=== PATIENT | male | born 1990 ===

== ENCOUNTER 2023-09-22 18:38 | Emergency (ER) | payer OTHER ==
[~2023-09-22] VITALS: Ht 180.3 cm; Wt 127.3 kg
[2023-09-22] MEDS ORDERED: NS 1,000 ML IV ONE (18:45)
[2023-09-22] MEDS ORDERED: Ketorolac 30 MG/ML VIAL IV ONE (19:00)
[2023-09-22 19:02] LABS: BASO # 0.02 K/mm3 (0.02-0.10); EOS # 0.19 K/mm3 (0.04-0.40); EOS % 2.7 % (0.0-4.0); HEMOGLOBIN 14.2 g/dL (13.5-18.0); MEAN CELL VOLUME 81 fl (78-100); MEAN CORPUSCULAR HEMOGLOBIN 27 pg (27-31); MEAN CORPUSCULAR HGB CONC 33 g/dL (33-37); MEAN PLATELET VOLUME 10.3 fl (7.4-10.4); MONO # 0.69 K/mm3 (0.20-0.80); PLATELET COUNT 299 K/mm3 (130-400); RED BLOOD COUNT 5.32 M/mm3 (4.20-5.60); RED CELL DISTRIBUTION WIDTH 12.9 % (11.5-14.5)
[2023-09-22 19:09] LABS: ALBUMIN 4.4 g/dL (3.5-5.0)
[2023-09-22 19:10] LABS: CALCIUM 9.6 mg/dL (8.3-10.5)
[2023-09-22 19:12] LABS: TOTAL PROTEIN 7.5 g/dL (6.4-8.3)
[2023-09-22 19:13] LABS: TOTAL BILIRUBIN 0.4 mg/dL (0.2-1.2)
[2023-09-22] MEDS ORDERED: Iohexol 300 - 100 ML VIAL IV ONE (19:24)
[2023-09-22 19:28] LABS: URINE APPEARANCE SLIGHTLY CLOUDY (CLEAR); URINE COLOR YELLOW (YELLOW)
[2023-09-22 19:29] LABS: URINE BILIRUBIN NEGATIVE (NEGATIVE); URINE BLOOD 2+ (NEGATIVE); URINE GLUCOSE NEGATIVE (NEGATIVE); URINE KETONE NEGATIVE (NEGATIVE); URINE LEUKOCYTE ESTERASE NEGATIVE (NEGATIVE); URINE MUCUS PRESENT (NOT PRESENT); URINE NITRATE NEGATIVE (NEGATIVE); URINE PROTEIN(semi-quant) 1+ (NEGATIVE); URINE WBC 0-1 /hpf (0-3)
[2023-09-22] MEDS ORDERED: KETOROLAC10 MG PO (20:20)
[2023-09-22] MEDS ORDERED: Home Ketorolac 10 MG #4 TABS/PACK PO ONE (20:30)
[2023-09-22 21:01] VITALS: BP 146/94
== END 2023-09-22 21:03 | disposition home or self-care (01) ==
LOC: ED 18:38
PROVIDERS: Family Medicine
DX: N20.0 Calculus of kidney (principal)
CPT/HCPCS: J1885; J7030; Q9967

== ENCOUNTER 2023-12-23 04:23 | Emergency (ER) | payer OTHER ==
[~2023-12-23] VITALS: Ht 177.8 cm; Wt 143.6 kg
[~2023-12-23 04:23] MED LIST: KETOROLAC10 MG PO
[2023-12-23] MEDS ORDERED: Cetirizine 10 MG TAB PO ONE (05:15)
[2023-12-23] MEDS ORDERED: Famotidine 20 MG TAB PO ONE (05:15)
[2023-12-23 06:11] LABS: BASO # 0.02 K/mm3 (0.02-0.10); EOS % 3.6 % (0.0-4.0); HEMATOCRIT 42.5 % (42.0-52.0); HEMOGLOBIN 13.9 g/dL (13.5-18.0); LYMPH# 1.16 K/mm3 (1.50-4.00); MEAN CELL VOLUME 82 fl (78-100); MEAN CORPUSCULAR HEMOGLOBIN 27 pg (27-31); MEAN CORPUSCULAR HGB CONC 33 g/dL (33-37); MEAN PLATELET VOLUME 10.2 fl (7.4-10.4); MONO # 0.52 K/mm3 (0.20-0.80); NEU # 3.61 K/mm3 (1.40-6.50); PLATELET COUNT 272 K/mm3 (130-400); RED BLOOD COUNT 5.16 M/mm3 (4.20-5.60); WHITE BLOOD COUNT 5.5 K/mm3 (4.8-10.8)
[2023-12-23 06:18] LABS: CALCIUM 9.1 mg/dL (8.3-10.5)
[2023-12-23 06:19] LABS: TOTAL PROTEIN 6.8 g/dL (6.4-8.3)
[2023-12-23 06:21] LABS: TOTAL BILIRUBIN 0.5 mg/dL (0.2-1.2)
[2023-12-23] MEDS ORDERED: diphenhydrAMINE 25 MG CAP PO ONE (07:15)
[2023-12-23 07:43] VITALS: BP 140/83
== END 2023-12-23 07:45 | disposition home or self-care (01) ==
LOC: ED 04:23
PROVIDERS: Nurse Practitioner
DX: R22.0 Localized swelling, mass and lump, head (principal)